=== PATIENT | female | born 1975 | race Caucasian/White ===

== ENCOUNTER 2018-09-07 16:08 | Emergency (ER) | payer MEDICAID ==
[~2018-09-07] VITALS: Ht 157.5 cm; Wt 74.8 kg
[2018-09-07 16:08] VITALS: BP_SYST 110
--- NOTE | 2018-09-07 16:08 | NUR ---
BROUGHT BACK TO BED #5 AND TRIAGED. REPORT GIVEN TO ANDREA
--- NOTE | 2018-09-07 16:14 | NUR ---
Patient is awake, alert, and oriented x4. is at bedside. Patient is complaining of generalized weakness since this morning. 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
[2018-09-07] MEDS ORDERED: TOP25 PO ×2 (16:22)
[2018-09-07] MEDS ORDERED: CARB200T PO (16:22)
--- NOTE | 2018-09-07 16:39 | NUR ---
ER Dr. Goyal at bedside examining patient.
[2018-09-07] MEDS ORDERED: NACL 0.9% 1,000 ML IV ONE (17:00)
--- NOTE | 2018-09-07 17:43 | NUR ---
Patient transported to radiology via gurney, accompanied by aviation safety technician.
--- NOTE | 2018-09-07 18:02 | NUR ---
Returned from radiology, back to [facility].
[2018-09-07 18:31] LABS: BASOPHILS % (AUTO) 0.5 % (0.0-2.0); EOSINOPHILS % (AUTO) 0.3 % (0.0-4.0); HEMATOCRIT 40.8 % (36-48); HEMOGLOBIN 13.5 g/dL (12.0-16.0); LYMPHOCYTES # (AUTO) 0.7 K/uL (1.0-5.5); LYMPHOCYTES % (AUTO) 8.4 % (20.5-51.5); MEAN CORPUSCULAR HEMOGLOBIN 33 pg (27-31); MEAN CORPUSCULAR HGB CONC 33 % (32-36); MEAN CORPUSCULAR VOLUME 99 fL (79.0-98.0); MONOCYTES # (AUTO) 0.5 K/uL (0.0-1.0); MONOCYTES % (AUTO) 5.6 % (1.7-9.3); NEUTROPHILS # (AUTO) 7.6 K/uL (1.8-7.7); NEUTROPHILS % (AUTO) 85.2 % (40.0-70.0); PLATELET COUNT (AUTO) 395 K/uL (130-430); RED BLOOD CELL COUNT(AUTO) 4.11 MIL/uL (4.2-6.2); RED CELL DISTRIBUTION WIDTH 12.3 % (9.0-15.0); WHITE BLOOD COUNT (AUTO) 8.8 K/uL (4.8-10.8)
--- NOTE | 2018-09-07 18:36 | NUR ---
# 14 FR In and Out catheter with use of sterile technique. Immediate return of 500 ml YELLOW urine noted. Urine sample collected and sent to lab. Pt tolerated procedure WELL. SPOUSE AT BEDSIDE DURING PROCEDURE. Patient unable to toilet self.
[2018-09-07 18:41] LABS: CALCIUM 8.6 mg/dL (8.4-11.0); CREATININE 0.73 mg/dL (0.55-1.30); POTASSIUM 3.8 mmol/L (3.5-5.1)
[2018-09-07 18:44] LABS: PROTHROMBIN TIME 10.5 SECS (9.5-12.5)
[2018-09-07 18:45] LABS: BILIRUBIN,URINE NEGATIVE (NEGATIVE); BLOOD, URINE NEGATIVE (NEGATIVE); CLARITY/URINE HAZY (CLEAR); COLOR,URINE YELLOW (YELLOW); GLUCOSE,URINE NEGATIVE (NEGATIVE); KETONES,URINE NEGATIVE (NEGATIVE); LEUKOCYTE ESTERASE ,URINE TRACE (NEGATIVE); NITRITE, URINE POSITIVE (NEGATIVE); PROTEIN URINE NEGATIVE (NEGATIVE)
[2018-09-07 18:46] LABS: ALBUMIN 3.4 g/dL (3.4-4.8); TOTAL BILIRUBIN 0.3 mg/dL (0.0-1.0)
[2018-09-07 18:53] LABS: BACTERIA,URINE MANY /HPF (None Seen); MUCUS,URINE None Seen /LPF (None Seen); RBC,URINE NONE SEEN /HPF (0-3)
[2018-09-07 18:58] LABS: BARBITURATE, URINE NEGATIVE (NEG <=200); BENZODIAZEPINE, URINE NEGATIVE (NEG <=150); CANNABINOID, URINE NEGATIVE (NEG <=50); COCAINE, URINE NEGATIVE (NEG <=150); METHAMPHETAMINES SCREEN,URINE NEGATIVE (NEG <=500); OPIATE, URINE NEGATIVE (NEG <=100); PHENCYCLIDINE SCREEN,URINE NEGATIVE (NEG <=25); UR TRICYCLIC ANTIDEPRESSANTS NEGATIVE (NEG <=300); URINE AMPHETAMINE NEGATIVE (NEG <=500); URINE METHADONE NEGATIVE (NEG <=200); URINE OXYCODONE SCREEN NEGATIVE (NEG <=100); URINE PROPOXYPHENE SCREEN NEGATIVE (NEG <=300)
--- NOTE | 2018-09-07 19:05 | NUR ---
Report given to Vega for continuation of care.
[2018-09-07 19:32] VITALS: BP_SYST 127
--- NOTE | 2018-09-07 19:32 | NUR ---
Patient to be transferred to [facility]. Is being transferred due to higher level of care. Receiving facility has accepting physician and available space. ER physician has signed transfer form. Patient or responsible green party has agreed to transfer and signed form. Patient belongings inventoried and will be sent with patient. Copy of nursing notes, lab reports, EKG, Physicians Orders and X-rays to be sent with patient. Report called to Macy at receiving facility. Receiving physician is Dr. Tom. [facility] ambulance and [facility] service has been called for transfer.
--- NOTE | 2018-09-07 19:32 | NUR ---
Transfer to [facility] via ACLS protocol. IV present no signs or symptoms of infiltration. VSS, pt AAO x 4.
== END 2018-09-07 19:32 | disposition short-term general hospital (02) ==
LOC: SED 16:08
DX: I61.9 Nontraumatic intracerebral hemorrhage, unspecified (principal); G45.9 Transient cerebral ischemic attack, unspecified; Z88.6 Allergy status to analgesic agent; Z88.8 Allergy status to other drugs, medicaments and biological substances; Z79.899 Other long term (current) drug therapy
CPT/HCPCS: 36415; 70450; 71045; 80053; 80307; 81000; 83605; 85025; 85610; 85730; 87086; 87186; 93005; 99285; J7030

== ENCOUNTER 2019-01-01 20:46 | Emergency (ER) | payer MEDICAID ==
[~2019-01-01] VITALS: Ht 165.1 cm; Wt 81.6 kg
[~2019-01-01 20:46] MED LIST: CARB200T PO; TOP25 PO
--- NOTE | 2019-01-01 20:46 | NUR ---
Placed in room 03 . Placed on cardiac rn, blood pressure machine and pulse oximeter. To gown for exam. Side rails up. Report given to ROSARIO RICO.
--- NOTE | 2019-01-01 20:49 | NUR ---
Fingerstick blood glucose: 91
[2019-01-01 20:50] VITALS: BP_SYST 111
--- NOTE | 2019-01-01 20:50 | NUR ---
Pt BIB ALS for syncopal episode lasting approximately 10mins. Pt's family states pt was in bed, stated she started to feel hot and became flaccid, unable to speak for appromiately 10mins. According to son when the pt became responsive she began to feel nauseous and vomited x 1. Pt denies chest pain, shortness of breath, or any other symptoms at this time. VSS, will continue to monitor.
--- NOTE | 2019-01-01 20:55 | NUR ---
ER Dr. Saeed at bedside examining patient.
[2019-01-01] MEDS ORDERED: levETIRAcetam 500 MG in NS 100 ML IV ONE (21:15)
[2019-01-01 21:37] LABS: CALCIUM 7.8 mg/dL (8.4-11.0); CREATININE 0.55 mg/dL (0.55-1.30); POTASSIUM 3.5 mmol/L (3.5-5.1)
[2019-01-01 21:41] LABS: RED BLOOD CELL COUNT(AUTO) 3.98 MIL/uL (4.2-6.2)
[2019-01-01 21:42] LABS: ALBUMIN 3.2 g/dL (3.4-4.8); HEMATOCRIT 38.7 % (36-48); HEMOGLOBIN 13.1 g/dL (12.0-16.0); TOTAL BILIRUBIN 0.2 mg/dL (0.0-1.0)
[2019-01-01 21:44] LABS: MEAN CORPUSCULAR HEMOGLOBIN 33 pg (27-31); MEAN CORPUSCULAR HGB CONC 34 % (32-36); MEAN CORPUSCULAR VOLUME 97 fL (79.0-98.0); RED CELL DISTRIBUTION WIDTH 12.8 % (9.0-15.0)
[2019-01-01 21:45] LABS: BASOPHILS % (AUTO) 0.5 % (0.0-2.0); EOSINOPHILS % (AUTO) 0.6 % (0.0-4.0); LYMPHOCYTES # (AUTO) 0.8 K/uL (1.0-5.5); LYMPHOCYTES % (AUTO) 11.8 % (20.5-51.5); MONOCYTES # (AUTO) 0.5 K/uL (0.0-1.0); MONOCYTES % (AUTO) 7.3 % (1.7-9.3); NEUTROPHILS # (AUTO) 5.6 K/uL (1.8-7.7); NEUTROPHILS % (AUTO) 79.8 % (40.0-70.0); PLATELET COUNT (AUTO) 351 K/uL (130-430)
--- NOTE | 2019-01-01 22:22 | NUR ---
Urine needs to be collected. Pt states she would not be able to produce urine or ambulate to the restroom and requests a catheter to be placed. Pt request a female RN and Rocio is at bedside for catheter insertion. Pt tolerated proceedure well
--- NOTE | 2019-01-01 22:43 | NUR ---
# 14 FR In and Out catheter with use of sterile technique. Immediate return of 250 ml dark yellow urine noted. Urine sample collected and sent to lab. Pt tolerated procedure well.
[2019-01-01 22:52] LABS: BILIRUBIN,URINE NEGATIVE (NEGATIVE); BLOOD, URINE NEGATIVE (NEGATIVE); CLARITY/URINE SL HAZY (CLEAR); COLOR,URINE YELLOW (YELLOW); GLUCOSE,URINE NEGATIVE (NEGATIVE); KETONES,URINE NEGATIVE (NEGATIVE); LEUKOCYTE ESTERASE ,URINE NEGATIVE (NEGATIVE); NITRITE, URINE POSITIVE (NEGATIVE); PROTEIN URINE NEGATIVE (NEGATIVE); UROBILINOGEN,URINE 0.2 (0.2-1.0)
[2019-01-01 23:01] LABS: RBC,URINE 0-3 /HPF (0-3)
[2019-01-01 23:02] LABS: BACTERIA,URINE MANY /HPF (None Seen)
[2019-01-01] MEDS ORDERED: cefTRIAXone 1 GM IVPB PREMIX 50 ML IV ONE (23:30)
--- NOTE | 2019-01-01 23:30 | NUR ---
Pt is sleeping in bed, no acute distress noted at this time. Will continue to monitor
[2019-01-02 01:00] VITALS: BP_SYST 116
--- NOTE | 2019-01-02 01:00 | NUR ---
Patient given written and verbal discharge instructions and verbalizes understanding. ER MD discussed with patient the results and treatment provided. Patient in stable condition. ID arm band removed. IV catheter removed intact and dressing applied, no active bleeding. Rx of Cipro given. Patient educated on pain management and to follow up with PMD. Pain Scale 0/10. Opportunity for questions provided and answered. Medication side effect fact sheet provided.
== END 2019-01-02 01:00 | disposition home or self-care (01) ==
LOC: SED 20:46
DX: G40.909 Epilepsy, unspecified, not intractable, without status epilepticus (principal); N39.0 Urinary tract infection, site not specified; Z86.73 Personal history of transient ischemic attack (TIA), and cerebral infarction without residual deficits; Z88.5 Allergy status to narcotic agent; Z88.8 Allergy status to other drugs, medicaments and biological substances; Z79.899 Other long term (current) drug therapy
CPT/HCPCS: 36415; 80053; 81000; 81025; 85025; 87040; 87086; 93005; 96365; 96367; 99284; J0696; J1953

== ENCOUNTER 2019-01-23 00:45 | Emergency (ER) | payer MEDICAID ==
[~2019-01-23] VITALS: Ht 160 cm; Wt 93.0 kg
[2019-01-23 00:50] VITALS: BP_SYST 119
--- NOTE | 2019-01-23 00:55 | NUR ---
Patient to ER bed 6 to gown for evaluation. Side rails up. Report given to Anna.
--- NOTE | 2019-01-23 01:00 | NUR ---
Seizure precautions initiated, padding placed on bed. Will cont. to monitor.
--- NOTE | 2019-01-23 01:05 | NUR ---
Pt came to the ED after having 2 seizures earlier this evening. Second seizure was at 0030. Denies n/v/d or fever. Denies vomiting. Denies chest pain or SOB. Reports taking Tegretol and Topamax. Pt has not followed up with her neurologist since last seizure. reports that pt has an appointment next month. Denies pain while urinating. Reports she was prescribed ABX for a UTI but says she lost her prescription but recently found it so was able to fill it a week ago. Reports starting ABX a week ago. No other complaints/injuries noted. Will cont. to monitor.
--- NOTE | 2019-01-23 01:10 | NUR ---
ER at bedside examining patient.
[2019-01-23] MEDS ORDERED: DIAZEPAM 10 MG/2 ML DISP.SYRIN IM ONE (01:30)
--- NOTE | 2019-01-23 01:50 | NUR ---
# 14 FR In and Out catheter with use of sterile technique. Immediate return of 150 ml dark yellow urine noted. Urine sample collected and sent to lab. Pt tolerated procedure well. Patient unable to toilet self.
[2019-01-23] MEDS ORDERED: LORazepam 2 MG/ML VIAL (FOR ER USE) IM ONE ×2 (02:00)
--- NOTE | 2019-01-23 02:03 | NUR ---
Pt states "I do not want Ativan, I do not like the side effects it gives me." ER MD Dr. Schmitz made aware.
--- NOTE | 2019-01-23 02:17 | NUR ---
Patient given written and verbal discharge instructions and verbalizes understanding. ER MD Dr. Schmitz discussed with patient the results and treatment provided. Patient in stable condition. ID arm band removed. Patient educated on pain management and to follow up with PMD within 2-3 days. Pain Scale 0/10. Opportunity for questions provided and answered. Medication side effect fact sheet provided.
[2019-01-23 02:32] VITALS: BP_SYST 119
== END 2019-01-23 02:17 | disposition home or self-care (01) ==
LOC: SED 00:45
DX: R56.9 Unspecified convulsions (principal); R03.0 Elevated blood-pressure reading, without diagnosis of hypertension; Z86.73 Personal history of transient ischemic attack (TIA), and cerebral infarction without residual deficits; Z88.5 Allergy status to narcotic agent; Z88.8 Allergy status to other drugs, medicaments and biological substances; Z79.899 Other long term (current) drug therapy
CPT/HCPCS: 99284; J2060

== ENCOUNTER 2019-01-28 22:13 | Emergency (ER) | payer MEDICAID ==
[~2019-01-28] VITALS: Ht 167.6 cm; Wt 90.7 kg
[2019-01-28 22:25] VITALS: BP_SYST 119
[2019-01-28] MEDS ORDERED: LORazepam 2 MG/ML VIAL (FOR ER USE) IVP ONE (23:00)
[2019-01-28] MEDS ORDERED: NACL 0.9% 1,000 ML IV ONE (23:00)
[2019-01-28 23:40] LABS: RED BLOOD CELL COUNT(AUTO) 4.13 MIL/uL (4.2-6.2); WHITE BLOOD COUNT (AUTO) 8.4 K/uL (4.8-10.8)
[2019-01-28 23:41] LABS: BASOPHILS % (AUTO) 0.4 % (0.0-2.0); EOSINOPHILS % (AUTO) 0.1 % (0.0-4.0); HEMATOCRIT 39.8 % (36-48); HEMOGLOBIN 13.6 g/dL (12.0-16.0); LYMPHOCYTES % (AUTO) 10.1 % (20.5-51.5); MEAN CORPUSCULAR HEMOGLOBIN 33 pg (27-31); MEAN CORPUSCULAR HGB CONC 34 % (32-36); MEAN CORPUSCULAR VOLUME 96 fL (79.0-98.0); MONOCYTES % (AUTO) 11.5 % (1.7-9.3); NEUTROPHILS % (AUTO) 77.9 % (40.0-70.0); PLATELET COUNT (AUTO) 316 K/uL (130-430); RED CELL DISTRIBUTION WIDTH 12.5 % (9.0-15.0)
[2019-01-28 23:42] LABS: LYMPHOCYTES # (AUTO) 0.9 K/uL (1.0-5.5); NEUTROPHILS # (AUTO) 6.6 K/uL (1.8-7.7)
[2019-01-28 23:53] LABS: ANION GAP 11 (5-15); CALCIUM 8.3 mg/dL (8.4-11.0); CHLORIDE 105 mmol/L (98-107); GLUCOSE 105 mg/dL (70-99); POTASSIUM 3.7 mmol/L (3.5-5.1); SODIUM SERUM 135 mmol/L (136-145); UREA NITROGEN, BLOOD 11 mg/dL (8-21)
[2019-01-28 23:57] LABS: ALANINE AMINOTRANSFERASE 19 U/L (12-78); ALBUMIN 3.1 g/dL (3.4-4.8); ASPARTATE AMINOTRANSFERASE 18 U/L (10-37); CARBAMAZEPINE (TEGRETOL) 12 ug/mL (4-12); TOTAL BILIRUBIN 0.4 mg/dL (0.0-1.0)
[2019-01-28 23:58] LABS: GFR AFRICAN AMERICAN 117 mL/min (>90); VALPROIC ACID < 3 ug/mL (50-100)
[2019-01-29] MEDS ORDERED: TOPIRAMATE 25 MG TABLET(TOPAMAX) PO ONE (00:15)
[2019-01-29] MEDS ORDERED: CLINDAMYCIN 900 mg/50mL D5W 50 ML IV ONE (00:15)
[2019-01-29] MEDS ORDERED: TOPIRAMATE 100 MG TABLET(Topamax) ONE (00:29)
[2019-01-29 01:45] VITALS: BP_SYST 119
== END 2019-01-29 01:45 | disposition home or self-care (01) ==
LOC: SED 22:13
DX: R56.9 Unspecified convulsions (principal); K04.7 Periapical abscess without sinus; Z86.73 Personal history of transient ischemic attack (TIA), and cerebral infarction without residual deficits; Z88.5 Allergy status to narcotic agent; Z88.8 Allergy status to other drugs, medicaments and biological substances; Z79.899 Other long term (current) drug therapy
CPT/HCPCS: 36415; 80053; 80156; 80164; 83605; 85025; 87040; 96365; 96375; 99283; J2060; J3490; J7030